=== PATIENT | female | born 1970 | race Hispanic/Latino ===

== ENCOUNTER 2022-11-18 21:34 | Emergency (ER) | payer BC ==
[2022-11-19 00:10] LABS: #Eosinphils 0.1 thou/uL (0.0-0.7); #Monocytes 0.7 thou/uL (0.11-0.59); %Basophils 0.3 % (0.0-1.0); %Eosinophils 0.9 % (0.0-10.0); %Lymphocytes 33.2 % (21.0-51.0); %Monocytes 5.8 % (0.0-10.0); %Neutrophils 59.5 % (42.0-75.0); Hematocrit 44.4 % (36.0-47.0); Hemoglobin 15.2 g/dL (12.0-16.0); Mean Corpuscular HGB CONC 34.2 g/dL (32.0-36.0); Mean Corpuscular Volume 87.7 fl (78.0-98.0); Mean Platelet Volume 10.7 fL (7.4-10.4); Platelet Count 234 10x3/uL (130-400); RBC Distribution Width 12.1 % (11.5-14.5); Red Blood Cell (RBC) Count 5.06 mill/uL (4.20-5.40); White Blood Cell (WBC) Count 11.8 10x3/uL (4.8-10.8)
[2022-11-19 00:38] LABS: ALT (SGPT) 13 U/L (8-55); AST (SGOT) 12 U/L (5-34); Albumin 4.3 g/dL (3.5-5.0); Alkaline Phosphatase 214 U/L (40-110); Anion Gap 14 mmol/L (10-20); BUN (Urea Nitrogen) 15 mg/dL (9.8-20.1); Bilirubin, Total 0.4 mg/dL (0.2-1.2); Calc. Creatinine Clearance 0 mL/min (70-130); Carbon Dioxide 24 mmol/L (22-29); Chloride 99 mmol/L (98-107); Estimated GFR 93; Globulin 2.9 g/dL (2.4-3.5); Glucose 391 mg/dL (70-105); Protein, Total 7.2 g/dL (6.0-8.3); Sodium 133 mmol/L (136-145)
[2022-11-19 00:45] LABS: BHCG - Serum Negative (NEGATIVE); Pregs Control Background? CLEAR/WHITE (CLR/WHITE); Pregs Control Bar Appear? YES (CONTROL BAR)
[2022-11-19] MEDS ORDERED: traZODone HCl 50 MG TAB ONE (01:04)
[2022-11-19] MEDS ORDERED: Dexamethasone 10 MG/ML VIAL ONE (01:04)
[2022-11-19] MEDS ORDERED: diphenhydrAMINE 50 MG/ML VIAL ONE (01:04)
[2022-11-19] MEDS ORDERED: Prochlorperazine 10 MG/2 ML VIAL ONE (01:04)
[2022-11-19] MEDS ORDERED: Acetaminophen 500 MG TAB ONE (01:04)
== END 2022-11-19 03:24 | disposition home or self-care (01) ==
LOC: ERS 21:34
DX: R51.9 Headache, unspecified (principal); E11.65 Type 2 diabetes mellitus with hyperglycemia; I10 Essential (primary) hypertension
CPT/HCPCS: 36415; 36416; 80053; 84703; 85025; 93005; 96365; 96367; 96375; J0780; J1100; J1200

== ENCOUNTER 2023-01-16 23:21 | Emergency (ER) | payer BC ==
[2023-01-17] MEDS ORDERED: Lidocaine 1% PF 5 ML VIAL ONE ×2 (00:01)
[2023-01-17] MEDS ORDERED: Bupivacaine 0.25% 10 ML VIAL ONE (00:08)
== END 2023-01-17 02:14 | disposition home or self-care (01) ==
LOC: ERS 23:21
DX: S62.633A Displaced fracture of distal phalanx of left middle finger, initial encounter for closed fracture (principal); S62.635A Displaced fracture of distal phalanx of left ring finger, initial encounter for closed fracture; E11.9 Type 2 diabetes mellitus without complications; I10 Essential (primary) hypertension; Z79.84 Long term (current) use of oral hypoglycemic drugs; W16.112A Fall into natural body of water striking water surface causing other injury, initial encounter
CPT/HCPCS: 26770; S0020